=== PATIENT | male | born 1985 | race African-American/Black ===

== ENCOUNTER 2017-04-08 20:28 | Emergency (ER) | payer OTHER, MEDICAID ==
[~2017-04-08] VITALS: Ht 200.7 cm; Wt 149.7 kg
[2017-04-08 21:54] LABS: Hematocrit 24.9 % (41.0-53.0); Hemoglobin 8.2 g/dL (13.5-17.5); Mean Corpuscular Hemoglobin 30.2 pg (28.0-32.0); Mean Corpuscular Hgb Conc. 33.1 g/dL (32.0-36.0); Mean Corpuscular Volume 91.3 fL (80.0-100.0); Platelet Count (auto) 240 10^3/uL (140-450); Red Blood Cells 2.72 10^6/uL (4.5-5.90); Red Cell Distribution Width 17.6 % (11.8-14.3); White Blood Cell 3.7 10^3/uL (4.4-10.8)
[2017-04-08 21:57] LABS: Calcium 8.4 mg/dL (8.5-10.1); Magnesium 2.6 mg/dL (1.6-2.6); Potassium 5.1 mmol/L (3.5-5.1)
[2017-04-08 21:58] LABS: Basophils % (manual) 0 (0.0-2.0); Blast Cells 0; Metamyelocytes % 0; Myelocytes % 0; Promyelocytes % 0; Reactive Lymphocytes 0
[2017-04-08 22:06] LABS: Bilirubin, Total 0.6 mg/dL (0.2-1.0); Total Protein 7.1 g/dL (6.4-8.2)
[2017-04-08] MEDS ORDERED: SODIUM CHLORIDE 0.9% 1,000 ML IV ONE (22:30)
[2017-04-08] MEDS ORDERED: cefTRIAXone 1GM/10ml IVPUSH 10 ML IV ONE (22:30)
[2017-04-08 23:09] LABS: Band Neutrophils % (manual) 1; Eosinophils % (manual) 4 (0-7); Lymphocytes % (manual) 11 (10.0-50.0); Monocytes % (manual) 8 (0-12)
[2017-04-09 02:18] LABS: Urine Bacteria FEW /hpf (None Seen); Urine Blood TRACE /uL (Negative); Urine Mucus FEW (None Seen); Urine WBC 4 /hpf (0 - 3)
[2017-04-09 02:30] VITALS: BP 154/86
== END 2017-04-09 02:44 | disposition home or self-care (01) ==
LOC: ER 20:28
DX: K85.90 Acute pancreatitis without necrosis or infection, unspecified (principal); J06.9 Acute upper respiratory infection, unspecified; R09.1 Pleurisy; I12.0 Hypertensive chronic kidney disease with stage 5 chronic kidney disease or end stage renal disease; E11.22 Type 2 diabetes mellitus with diabetic chronic kidney disease; N18.6 End stage renal disease; Z99.2 Dependence on renal dialysis; Z88.8 Allergy status to other drugs, medicaments and biological substances
CPT/HCPCS: 36415; 71010; 74176; 76705; 80053; 81001; 83690; 83735; 85007; 85027; 93005; 96361; 96374

== ENCOUNTER → 2022-01-14 | Emergency (ER) | payer OTHER, MEDICAID ==
[~2022-01-14] VITALS: Ht 200.7 cm; Wt 131.8 kg
[~2022-01-14] MED LIST: KETOROLAC TROMETH 30 MG/ML 1ML VIAL IV ONE; KETOROLAC TROMETH 60MG/2ML VIAL IM ONE; ONDANSETRON HCL 4 MG/2 ML VIAL IV ONE
[2022-01-14 19:31] LABS: Basophils # (auto) 0 10 ^3/uL (0-0.2); Basophils % (auto) 0.2 % (0.0-2.0); Eosinophils # (auto) 0 10 ^3/uL (0-0.8); Hematocrit 28.4 % (41.0-53.0); Hemoglobin 9.2 g/dL (13.5-17.5); Lymphocytes # (auto) 0.8 10 ^3/uL (0.4-5.4); Lymphocytes % (auto) 7.7 % (10.0-50.0); Mean Corpuscular Hemoglobin 28.8 pg (28.0-32.0); Mean Corpuscular Hgb Conc. 32.5 g/dL (32.0-36.0); Mean Corpuscular Volume 88.7 fL (80.0-100.0); Monocytes # (auto) 1.1 10 ^3/uL (0-1.3); Neutrophils # (auto) 8.3 10 ^3/uL (1.6-8.6); Neutrophils % (auto) 81.1 % (37.0-80.0); Red Cell Distribution Width 16.4 % (11.8-14.3); White Blood Cell 10.2 10^3/uL (4.4-10.8)
[2022-01-14 19:44] LABS: Albumin 2.9 g/dL (3.4-5.0); Calcium 8.1 mg/dL (8.5-10.1); Potassium 4.6 mmol/L (3.5-5.1)
[2022-01-14 19:49] LABS: Bilirubin, Total 2.4 mg/dL (0.2-1.0); Total Protein 8.1 g/dL (6.4-8.2)
[2022-01-14 20:55] VITALS: BP 83/50
== END | disposition left against medical advice (07) ==
LOC: EDUNIT# 15:40 → ER 15:46 → EDBD 15:46
DX: E11.22 Type 2 diabetes mellitus with diabetic chronic kidney disease (principal); I12.0 Hypertensive chronic kidney disease with stage 5 chronic kidney disease or end stage renal disease; N18.6 End stage renal disease; Z88.8 Allergy status to other drugs, medicaments and biological substances
CPT/HCPCS: 36415; 80053; 83690; 85025; 93005; 96372; 99284; J1885

== ENCOUNTER 2022-01-15 09:46 | Inpatient (IN) | payer OTHER, MEDICAID ==
[~2022-01-15] VITALS: Ht 190.5 cm; Wt 125.0 kg
[2022-01-15] MEDS ORDERED: SODIUM BICARBONATE 8.4% INJ 50ML SYRINGE ONE ×3 (09:50→12:53)
[2022-01-15] MEDS ORDERED: DEXTROSE 50% SYRINGE 100 ML IV ONE (09:56)
[2022-01-15] MEDS ORDERED: SODIUM BICARBONATE 50ML VIAL 100 ML in SOD CHL 0.45% 1,000 ML IV ONE (10:00)
[2022-01-15] MEDS ORDERED: NOREPINEPHRINE 8 MG/250ML KIT 250 ML IV SCH (10:05)
[2022-01-15] MEDS ORDERED: EPINEPHrine HCL 250 ML IV ONE (10:07)
[2022-01-15] MEDS ORDERED: NOREPINEPHRINE 8 MG/250ML KIT 250 ML IV ONE (10:07)
[2022-01-15] MEDS ORDERED: EPINEPHrine HCL 1 MG/10 ML SYRG ONE ×2 (10:14→10:25)
[2022-01-15] MEDS: DOPamine 1600MCG/ML D5W 250 ML IV SCH ×3 (10:25→16:15)
[2022-01-15] MEDS: EPINEPHrine HCL 250 ML IV SCH ×2 (10:30→13:04)
[2022-01-15] MEDS ORDERED: PIPERACILLIN-TAZOB 3.375GM 100 ML IV ONE (11:00)
[2022-01-15] MEDS ORDERED: EPINEPHrine HCL 1 MG/10 ML SYRG IV ONE ×2 (11:00)
[2022-01-15] MEDS ORDERED: SODIUM BICARBONATE 8.4 % INJ 50ML VIAL IV ONE ×3 (11:00→13:00)
[2022-01-15 11:13] LABS: Hemoglobin 8.7 g/dL (13.5-17.5); Red Blood Cells 3.08 10^6/uL (4.5-5.90)
[2022-01-15 11:18] LABS: Hematocrit 28.7 % (41.0-53.0); Mean Corpuscular Hemoglobin 28.3 pg (28.0-32.0); Mean Corpuscular Hgb Conc. 30.4 g/dL (32.0-36.0); Mean Corpuscular Volume 93.3 fL (80.0-100.0); Red Cell Distribution Width 16.5 % (11.8-14.3); White Blood Cell 16.9 10^3/uL (4.4-10.8)
[2022-01-15 11:27] LABS: Basophils % (manual) 0 (0.0-2.0); Blast Cells 0; Eosinophils % (manual) 0 (0-7); Promyelocytes % 0; Reactive Lymphocytes 0
[2022-01-15 11:30] LABS: Lactic Acid w/Reflex 11.7 mmol/L (0.4-2.0)
[2022-01-15 11:33] LABS: INR 1.64 (0.9-1.15); Partial Thromboplastin Time 41.3 sec (24.6-33.4)
[2022-01-15 11:37] LABS: Albumin 2.7 g/dL (3.4-5.0); BUN/Creatinine Ratio 6.6; Bilirubin, Total 2.7 mg/dL (0.2-1.0); Total Protein 7.6 g/dL (6.4-8.2)
[2022-01-15] MEDS ORDERED: MIDAZOLAM DRIP 50 mg/50mL 50 ML IV SCH (12:00)
[2022-01-15] MEDS ORDERED: PHENYLEPHRINE IV 250 ML IV SCH (12:15)
[2022-01-15 12:24] LABS: Potassium 5.7 mmol/L (3.5-5.1)
[2022-01-15 12:32] LABS: Band Neutrophils % (manual) 10; Lymphocytes % (manual) 15 (10.0-50.0); Metamyelocytes % 1; Monocytes % (manual) 10 (0-12); Myelocytes % 4
[2022-01-15 13:07] VITALS: BP 69/36
[2022-01-15] MEDS ORDERED: VASOPRESSIN 50 UNITS in D5W 5% 247.5 ML IV SCH (14:00)
[2022-01-15] MEDS ORDERED: HEPARIN SODIUM (PORCINE) 5000 UNITS/ML 1ML VIAL IV ONE (14:00)
[2022-01-15] MEDS ORDERED: HEPARIN DRIP/D5W 100UNITS/ML 250 ML IV SCH (14:00)
[2022-01-15] MEDS ORDERED: ONDANSETRON HCL 4 MG/2 ML VIAL IV PRN (14:00)
[2022-01-15] MEDS ORDERED: SODIUM CHL 0.9% 1000 ML BAG XX ONE (14:15)
[2022-01-15] MEDS ORDERED: SODIUM CHLORIDE 0.9% 500 ML IV ONE (14:15)
[2022-01-15] MEDS ORDERED: VANCOMYCIN PER PHARMACY 0 MG IV SCH (14:45)
[2022-01-15] MEDS ORDERED: VANCOMYCIN 1GM/250ML 250 ML IV ONE (15:00)
[2022-01-15 15:11] LABS: Neutrophils % (auto) 80.1 % (37.0-80.0)
[2022-01-15 15:13] LABS: Basophils # (auto) 0.1 10 ^3/uL (0-0.2); Basophils % (auto) 0.9 % (0.0-2.0); Eosinophils # (auto) 0 10 ^3/uL (0-0.8); Eosinophils % (auto) 0.2 % (0.0-7.0); Hematocrit 28.9 % (41.0-53.0); Hemoglobin 8.9 g/dL (13.5-17.5); Lymphocytes % (auto) 12.2 % (10.0-50.0); Mean Corpuscular Hemoglobin 28.6 pg (28.0-32.0); Mean Corpuscular Hgb Conc. 30.8 g/dL (32.0-36.0); Mean Corpuscular Volume 92.7 fL (80.0-100.0); Monocytes # (auto) 0.6 10 ^3/uL (0-1.3); Monocytes % (auto) 6.6 % (0.0-12.0); Neutrophils # (auto) 6.9 10 ^3/uL (1.6-8.6); Nucleated Red Blood Cells % 0.1 %; Red Blood Cells 3.11 10^6/uL (4.5-5.90); Red Cell Distribution Width 16.8 % (11.8-14.3); White Blood Cell 8.6 10^3/uL (4.4-10.8)
[2022-01-15 15:29] LABS: Partial Thromboplastin Time 50.5 sec (24.6-33.4)
[2022-01-15] MEDS: ALBUMIN 25% 100 ML IV ONE ×2 (15:35→16:05)
[2022-01-15] MEDS ORDERED: ALBUMIN 25% 100 ML IV PRN (15:45)
[2022-01-15 15:57] LABS: Magnesium 2.6 mg/dL (1.6-2.6)
[2022-01-15 16:01] VITALS: BP 93/59
[2022-01-15 18:45] VITALS: BP 93/66
[2022-01-15] MEDS ORDERED: MORPHINE SULFATE INJ 2 MG/ml SYRG ONE (19:05)
[2022-01-15] MEDS ORDERED: MORPHINE SULFATE INJ 2 MG/ml SYRG IV PRN (19:15)
[2022-01-16] MEDS ORDERED: PANTOPRAZOLE 40 MG/10 ML VIAL INJ IV SCH (10:00)
== END 2022-01-15 19:12 | DRG 871 ==
LOC: ER 09:46 → EDBD 09:46 → TELE 14:11
PROVIDERS: ADMIT Nurse Practitioner Family; ATTEND Nurse Practitioner Family
PROC: 5A1D70Z Performance of Urinary Filtration, Intermittent, Less than 6 Hours Per Day (ICD-10-PCS; principal; 2022-01-15)
PROC: 5A12012 Performance of Cardiac Output, Single, Manual (ICD-10-PCS; 2022-01-15)
PROC: 5A1935Z Respiratory Ventilation, Less than 24 Consecutive Hours (ICD-10-PCS; 2022-01-15)
PROC: 0BH17EZ Insertion of Endotracheal Airway into Trachea, Via Natural or Artificial Opening (ICD-10-PCS; 2022-01-15)
PROC: 06HY33Z Insertion of Infusion Device into Lower Vein, Percutaneous Approach (ICD-10-PCS; 2022-01-15)
DX: A41.9 Sepsis, unspecified organism (principal); G93.41 Metabolic encephalopathy; N18.6 End stage renal disease; R65.21 Severe sepsis with septic shock; E87.20 Acidosis, unspecified; I12.0 Hypertensive chronic kidney disease with stage 5 chronic kidney disease or end stage renal disease; D63.1 Anemia in chronic kidney disease; D69.6 Thrombocytopenia, unspecified; E11.22 Type 2 diabetes mellitus with diabetic chronic kidney disease; Z20.822 Contact with and (suspected) exposure to COVID-19; E21.2 Other hyperparathyroidism; E87.5 Hyperkalemia; I46.9 Cardiac arrest, cause unspecified; K74.60 Unspecified cirrhosis of liver; R57.0 Cardiogenic shock; Z99.2 Dependence on renal dialysis; W18.39XA Other fall on same level, initial encounter; Y93.89 Activity, other specified; Y92.098 Other place in other non-institutional residence as the place of occurrence of the external cause; Y99.8 Other external cause status
CPT/HCPCS: 31500; 36415; 36556; 36600; 71045; 76705; 80053; 82140; 82805; 83605; 83615; 83735; 83880; 84100; 84484; 85007; 85025; 85027; 85610; 85730; 86850; 86900; 86901; 87040; 87070; 87077; 87186; 87205; 90935; 92950; 93005; 93306; 94002; 99291; G0378; J0171; J2250; J7060; P9047